=== PATIENT | male | born 1985 | race Hispanic/Latino ===

== ENCOUNTER 2024-08-31 19:49 | Emergency (ER) | payer SELFPAY ==
[~2024-08-31] VITALS: Ht 167.6 cm; Wt 105.5 kg
[~2024-08-31 19:49] MED LIST: ATIVAN1 MG PO; HYDROXYZINE HCL25 MG PO
[2024-08-31] MEDS ORDERED: FAMOTIDINE 20 MG/ 2 ML VIAL IV ONE (20:00)
[2024-08-31] MEDS ORDERED: ondansetron HCL 4 MG/2 ML VIAL IV ONE (20:00)
[2024-08-31] MEDS ORDERED: KETOROLAC TROMETHAMINE 30 MG/ML VIAL IV ONE (20:15)
[2024-08-31 20:24] LABS: BASOPHILS 0.6 % (0-2); EOSINOPHILS 2.3 % (0-6); HEMATOCRIT 46.9 % (35.0-50.0); HEMOGLOBIN 16.2 g/dL (12.0-18.0); LYMPHOCYTES 27.1 % (24-44); MCHC 34.6 g/dl (30-36); MCV 89.6 fl (81-99); MONOCYTES 9.3 % (0-12); NEUTROPHILS 60.7 % (39-80); PLATELET COUNT 195 K/uL (140-440); RBC 5.23 M/ul (4.3-5.7); RDW 12.8 (10.5-15.0)
[2024-08-31 20:37] LABS: ALBUMIN 4.5 g/dL (3.4-5.0); ALBUMIN/GLOBULIN RATIO 1.15 (1.1-2.4); ANION GAP 14.6 (7-21); BILIRUBIN, TOTAL 0.4 ng/dL (0.2-1.0); BUN/CREATININE RATIO 14.54 (6.0-28.6); CALCIUM 8.9 mg/dL (8.5-10.1); CREATININE, SERUM 1.1 mg/dL (0.70-1.30); POTASSIUM 3.6 mmol/L (3.5-5.1); PROTEIN, TOTAL 8.4 g/dL (6.4-8.2)
[2024-08-31 21:32] LABS: BILIRUBIN, URINE NEGATIVE (negative); BLOOD/HGB, URINE NEGATIVE (Negative); KETONE, URINE NEGATIVE (Negative); LEUK ESTERASE, URINE NEGATIVE (negative); NITRITE, URINE NEGATIVE (negative)
[2024-08-31 21:47] LABS: AMPHETAMINES, URINE NEGATIVE (NEGATIVE); BARBITURATES, URINE NEGATIVE (NEGATIVE); BENZODIAZEPINE, URINE NEGATIVE (NEGATIVE); BUPRENORPHINE, URINE NEGATIVE (NEGATIVE); CANNABINOID, URINE NEGATIVE (NEGATIVE); COCAINE, URINE NEGATIVE (NEGATIVE); ECSTASY, URINE NEGATIVE (NEGATIVE); FENTANYL, URINE NEGATIVE (NEGATIVE); METHADONE, URINE NEGATIVE (NEGATIVE); OPIATES, URINE NEGATIVE (NEGATIVE); OXYCODONE, URINE NEGATIVE (NEGATIVE); PHENCYCLIDINE, URINE NEGATIVE (NEGATIVE)
[2024-08-31 21:52] VITALS: BP 136/91
== END 2024-08-31 21:52 | disposition home or self-care (01) ==
LOC: ED 19:49
PROVIDERS: Internal Medicine
DX: R10.11 Right upper quadrant pain (principal); E66.9 Obesity, unspecified
CPT/HCPCS: 36415; 76705; 80053; 80307; 81003; 83690; 85025; J1885; J2405

== ENCOUNTER 2025-02-17 21:28 | Emergency (ER) | payer SELFPAY ==
[~2025-02-17] VITALS: Ht 167.6 cm; Wt 104.0 kg
[2025-02-17] MEDS ORDERED: hydrOXYzine pamoate 50 MG CAP PO ONE (22:30)
[2025-02-17] MEDS ORDERED: HYDROXYZINE HCL25 MG PO (23:18)
[2025-02-17 23:26] VITALS: BP 141/87
== END 2025-02-17 23:25 | disposition home or self-care (01) ==
LOC: ED 21:28
DX: F41.9 Anxiety disorder, unspecified (principal); Z91.89 Other specified personal risk factors, not elsewhere classified